=== PATIENT | male | born 1985 | race Caucasian/White ===

== ENCOUNTER 2017-03-06 07:17 | Emergency (ER) | payer SELFPAY ==
[~2017-03-06] VITALS: Ht 177.8 cm; Wt 87.0 kg
[2017-03-06 07:20] VITALS: BP 143/90; PULSE 65; RESP 18; TEMP 98; O2SAT 98
[2017-03-06] MEDS ORDERED: IBUPROFEN 800 MG TAB PO ONE (07:45)
--- NOTE | 2017-03-06 07:59 | RADRPT ---
EXAM DATE/TIME: 03/06/2017 07:45 [facility] COMPARISON: ANKLE RIGHT COMPLETE ([id number]), December 20, 2005, 0:06. INDICATIONS : Right ankle pain, patient rolled ankle from fall yesterday. MEDICAL HISTORY : None. SURGICAL HISTORY : None. ENCOUNTER: Initial ACUITY: 1 day PAIN SCORE: 8/10 LOCATION: Right medial ankle FINDINGS: Three view exam was performed of the right ankle. The bony structures are in normal alignment. No e vidence of fracture, dislocation. The ankle mortise is intact. No radiopaque foreign bodies are see n. Bony mineralization is normal. At the lateral aspect of the ankle. CONCLUSION: Soft tissue swelling and ankle joint effusion. Waqar Crouch MD on March 06, 2017 at 7:56 Board Certified Radiologist. This report was verified electronically.
[2017-03-06] MEDS ORDERED: IBUP800T23 PO (08:14)
--- NOTE | 2017-03-06 08:15 | PD ---
HPI Chief Complaint: Injury Time Seen by Provider: 08:13 Travel History International Travel<30 days: No Contact w/Intl Traveler<30days: No Traveled to known affect area: No History of Present Illness HPI 31-year-old male presents to the emergency department with complaint of right ankle pain and swelling since yesterday after stepping down wrong on a root and twisting his ankle. Denies paresthesias, loss of sensation to the affected extremity. Reports decreased range of motion of the ankle secondary to pain and swelling. Has been "somewhat" ambulatory on the affected extremity. Has iced and elevated the affected extremity. Has taken ibuprofen for symptom management. Still with medical complaints. No known allergies. No other modifying factors or associated signs and symptoms. PFSH Social History Tobacco Use: No Allergies-Medications (Allergen,Severity, Reaction): Coded Allergies: No Known Allergies (Unverified , 03/06/17) Reported Meds & Prescriptions Reported Meds & Active Scripts Active Ibuprofen 800 Mg Tab 800 Mg PO Q6HR PRN Review of Systems Except as stated in HPI: all other systems reviewed are Neg Physical Exam Narrative GENERAL: Well-nourished, well-developed male patient, in no acute distress SKIN: Warm and dry. HEAD: Atraumatic. Normocephalic. EYES: Pupils equal and round. No scleral icterus. No injection or drainage. ENT: Mucosa pink and moist. Airway patent. NECK: Trachea midline. CARDIOVASCULAR: Regular rate. RESPIRATORY: No accessory muscle use. GASTROINTESTINAL: Flat. MUSCULOSKELETAL: Right ankle with point tenderness to the medial malleolar zone with palpation; edematous without erythema or ecchymosis; no obvious deformity. Right Lower extremity is supple and nontense with 2+ pedal pulse and sensory intact. No obvious deformities. No clubbing. No cyanosis. No edema. NEUROLOGICAL: Awake and alert. Oriented 3. No obvious cranial nerve deficits. Motor grossly within normal limits. Normal speech. PSYCHIATRIC: Appropriate mood and affect; insight and judgment normal. Data Data Last Documented VS Vital Signs Date Time Temp Pulse Resp B/P Pulse Ox O2 Delivery O2 Flow Rate FiO2 03/06/17 07:20 98.0 65 18 143/90 98 Orders Ice/Cold Pack (03/06/17 07:33) Ankle, Complete ([id number]) (03/06/17 07:33) Crutches (03/06/17 07:33) Ibuprofen (Motrin) (03/06/17 07:45) Splint Or Brace Apply/Monitor (03/06/17 08:15) [facility] [place] Medical Decision Making Medical Screen Exam Complete: Yes Emergency Medical Condition: Yes Medical Record Reviewed: Yes Differential Diagnosis Ankle sprain, ankle fracture, ankle injury Narrative Course 31-year-old male with right ankle injury. Ibuprofen ordered. Right ankle x- ray ordered. 0825: Right ankle x-ray concludes: Ankle X-Ray 03/06/17 0733 Signed Impressions: Service Date/Time: Monday, March 06, 2017 07:45 - CONCLUSION: Soft tissue swelling and ankle joint effusion. Waqar Crouch MD Ankle stirrup splint and crutches provider for support. Ibuprofen prescribed for home. Instructed patient to follow up with orthopedics as needed. Instructed patient to follow up with primary care provider. Patient verbalizes understanding and agreement with treatment plan. Patient is medically cleared and stable for discharge. Discussed reasons to return to the emergency department. Patient agrees with treatment plan. The patients vital signs are stable and the patient is stable for outpatient follow-up and treatment. Patient discharged home, stable and in no acute distress. Diagnosis Primary Impression: Right ankle sprain Qualified Code: S93.401A - Sprain of right ankle, unspecified ligament, initial encounter Referrals: Orthopedist Primary Care Physician Patient Instructions: Ankle Sprain (ED), Ankle Sprain Exercises (GEN), Crutch Instructions (ED), General Instructions Departure Forms: Tests/Procedures, Work Release Enter return to work date: Mar 13, 2017 Additional Instructions: Tylenol or ibuprofen as directed and as needed for pain and inflammation Rest, ice, compress, and elevate extremity to decrease pain and inflammation Ankle Brace for support Crutches for support Avoid aggravating activity; increase activity as tolerated Follow-up with primary care provider Follow-up with orthopedics as needed Return to the emergency department immediately with worsening of symptoms Med/Other Pt SpecificInfo: Prescription(s) given Scripts Ibuprofen 800 Mg Lte801 Mg PO Q6HR PRN (PAIN) #30 TAB Ref 0 Prov:Lesa Gupta 03/06/17 Disposition: 01 DISCHARGE HOME Condition: Stable Lesa Gupta Mar 06, 2017 08:15
== END 2017-03-06 08:33 | disposition home or self-care (01) ==
LOC: NEPD 07:17
DX: S93.401A Sprain of unspecified ligament of right ankle, initial encounter (principal); X50.1XXA Overexertion from prolonged static or awkward postures, initial encounter; Y93.9 Activity, unspecified; Y92.9 Unspecified place or not applicable; Y99.9 Unspecified external cause status
CPT/HCPCS: 73610; 99283; E0113; L1906